=== PATIENT | female | born 1995 | race Caucasian/White ===

== ENCOUNTER 2017-05-24 04:53 | Emergency (ER) | payer OTHER ==
--- NOTE | 2017-05-24 06:57 | ER Document Report ---
ED Skin Rash/Insect Bite/Abscs - General Mode of Arrival: Ambulatory Information source: Patient TRAVEL OUTSIDE OF THE [place] IN LAST 30 DAYS: No - HPI Patient complains to provider of: Skin rash/lesion Skin Character: Rash Quality of rash: Itchy Medication exposure: Other - Sudafed - General Chief Complaint: Rash Stated Complaint: POSSIBLE RASH Time Seen by Provider: 05/24/17 06:32 Notes: Patient is a 21 year old female who presents to the ED with complaints of an itchy rash to her neck, ears, armpits and lower extremities. Patient denies using any new lotions, deodorants or perfumes. She has not eaten any new foods recently. Patient recently took the red Sudafed pill last night and that is the only new thing she has had. (REED LENZ) - Related Data Allergies/Adverse Reactions: No Known Allergies Allergy (Verified 10/24/15 11:05) Past Medical History - General Information source: Patient - Social History Smoking Status: Unknown if Ever Smoked Family History: Reviewed & Not Pertinent Patient has suicidal ideation: No Patient has homicidal ideation: No Renal/ Medical History: Denies: Hx Peritoneal Dialysis Review of Systems - Review of Systems Constitutional: No symptoms reported EENT: No symptoms reported Cardiovascular: No symptoms reported Respiratory: No symptoms reported Gastrointestinal: No symptoms reported Genitourinary: No symptoms reported Female Genitourinary: No symptoms reported Musculoskeletal: No symptoms reported Skin: See HPI, Rash Hematologic/Lymphatic: No symptoms reported Neurological/Psychological: No symptoms reported Physical Exam - General General appearance: Appears well, Alert In distress: None - HEENT Head: Normocephalic, Atraumatic Eyes: Normal Extraocular movements intact: Yes Pupils: PERRL - Respiratory Respiratory status: No respiratory distress - Cardiovascular Rhythm: Regular - Abdominal Distension: No distension - Back Back: Normal - Extremities General upper extremity: Normal inspection, Normal ROM General lower extremity: Normal inspection, Normal ROM - Neurological Neuro grossly intact: Yes - Psychological Associated symptoms: Normal affect, Normal mood - Skin Skin Temperature: Warm Skin Moisture: Dry Skin Color: Normal Skin irregularity: other - urticaria under arm pits, around neck, bilateral ears , in bilateral inguinal folds and bilateral medial thighs - Vital signs Vitals: Temp Pulse Resp BP Pulse Ox 98.4 F 88 18 125/73 99 05/24/17 05:02 05/24/17 05:02 05/24/17 05:02 05/24/17 05:02 05/24/17 05:02 Course - Re-evaluation Re-evalutation: 05/24/17 Patient is a 21-year-old female who presents with acute urticaria. Patient will be given a prescription for steroids and is encouraged to not use any thing with perfumes or dyes. Understands and agrees with plan. No difficulty breathing, talking, swallowing, or wheezing. (GLORIA JAVIER) - Vital Signs Vital signs: Temp Pulse Resp BP Pulse Ox 98.4 F 86 18 135/86 H 99 05/24/17 07:26 05/24/17 07:26 05/24/17 07:26 05/24/17 07:26 05/24/17 07:26 Discharge - Discharge Clinical Impression: Urticaria Condition: Stable Disposition: HOME, SELF-CARE Instructions: Acute Urticaria ([facility]) Additional Instructions: Please avoid anything that has dyes or perfumes. You may take clear Benadryl [id number], Claritin or Zyrtec. Prescriptions: Prednisone 40 mg PO DAILY #6 tablet Scribe Attestation: 05/24/17 17:07 I personally performed the services described in the documentation, reviewed and edited the documentation which was dictated to the scribe in my presence, and it accurately records my words and actions. (GLORIA JAVIER) Scribe Documentation - Scribe Written by Emily:: emily Barrientos, 05/24/2017, 0735 acting as scribe for :: Dee
[2017-05-24 07:32] VITALS: BP 135/86
== END 2017-05-24 07:32 | disposition home or self-care (01) ==
LOC: ER 04:53
DX: L50.9 Urticaria, unspecified (principal)
CPT/HCPCS: 99283